=== PATIENT | male | born 1960 | race Caucasian/White ===

== ENCOUNTER 2017-01-26 08:47 | Inpatient (IN) | payer OTHER ==
[~2017-01-26] VITALS: Ht 167.6 cm; Wt 73.7 kg
--- NOTE | ~2017-01-26 | H ---
[facility] [place] [address] HISTORY AND PHYSICAL Name: BARRON CARIAS Room #: 218-P [facility] IN M.R.#: [id number] Admission: 01/26/17 Attend Phys: Bam William MD, Discharge: 02/02/17 Date of : 58 Report #: [id number] THIS REPORT FOR: //name// CC: Bam Phillips MD DATE OF SERVICE: 01/26/2017 HISTORY OF PRESENT ILLNESS: The patient is a 57-year-old male, a juvenile diabetic since age 3, who presents to the emergency room in [place] with chest pain which had initiated last night at approximately 09:00 p.m. He thought it was GI and did not present until early this morning to the [place] [facility] with a troponin of 19 and some subtle lateral wall ST elevation in V3, V4 and V5. He is in sinus rhythm. He has not had prior documented coronary artery disease. He has multiple risk factors including the juvenile diabetes. He has been more fatigued. He is on disability. MEDICATIONS: He has been compliant with the medications, which were amlodipine 10, baby aspirin, atorvastatin 20, diltiazem 300, fish oil, losartan and hydrochlorothiazide 100/25, metoprolol 100, NovoLog and Tresiba. ALLERGIES: PENICILLIN. PAST MEDICAL HISTORY: Positive for the juvenile diabetes, hypertension, hypercholesterolemia, DJD, has had retinopathy and mild kidney disease. SOCIAL HISTORY: No alcohol or tobacco. He has disability. He is , lives in [place], [place]. FAMILY HISTORY: Positive for father who had coronary stents in his 60s. REVIEW OF SYSTEMS: Negative and as stated above, with the exception of fatigue and some occasional nocturia and hesitancy. PHYSICAL EXAMINATION: VITAL SIGNS: Blood pressure 100/60, pulse is 90. HEENT: Eyes reveal xanthelasmas. Pharynx is clear. NECK: Shows preserved upstrokes. There is a right-sided bruit. No JVD. LUNGS: Clear. CARDIAC EXAMINATION: Regular rate and rhythm, S1, S2. ABDOMEN: Soft abdominal bruit. EXTREMITIES: Femoral pulses are intact. The distal pulses are diminished, but they are also intact. MUSCULOSKELETAL: No gross joint deformity. Mild arthritic changes. SKIN: Warm and dry, without xanthoma or ulcer. [facility] [address] [place] [address] HISTORY AND PHYSICAL Name: BARRON CARIAS Room #: 218-P [facility] IN .R.#: [id number] Admission: 01/26/17 Attend Phys: Bam William MD, Discharge: 02/02/17 Date of : 58 Report #: [id number] ASSESSMENT: 1. Non-ST elevation myocardial infarction. 2. Mild ischemic cardiomyopathy. 3. Juvenile-onset diabetes. 4. Hypertension. 5. Hypercholesterolemia. RECOMMENDATIONS AND PLAN: We will proceed emergently to the catheterization lab to delineate the anatomy and intervention as indicated. IV fluids have been initiated, aspirin and statin. Thank you for asking us to assist in the care of this patient. <ELECTRONICALLY SIGNED> By: Bam William MD, FACC 02/08/17 0855 0944 1059 Bam William MD, FACC /nt
--- NOTE | ~2017-01-26 | CNG ---
[facility] [place] [address] CYTO-NONGYN REPORT PROCEDURE Name: BARRON DANIEL Room #: 218-P DIS IN M.R.#: [id number] Admission: 01/26/17 Date of : 58 Discharge: 02/02/17 Report #: [id number] Path Case #: [id number] CYTOPATHOLOGY REPORT COLLECTION DATE: 02/01/2017 RECEIVED DATE: 02/01/2017 SUBMITTING PHYS: Dr. Gerard Dunn OTHER PHYS: Dr. Jamel William CLINICAL HISTORY: Right chest fluid SPECIMEN(S) RECEIVED: A.Pleural fluid, Right * * * * * * * * * * * * FINAL DIAGNOSIS: Pleural fluid, Right: - No malignant epithelial cells identified. - Occasional reactive mesothelial cells and abundant predominantly chronic inflammatory cells, including numerous pigmented histiocytes, are identified. COMMENT: Properly controlled immunohistochemical stains are performed on the cell block. Block A1: Calretinin - highlights the occasional mesothelial cells. CD68 - stains the numerous histiocytes. Aftab-EP4 - nonreactive. Clinical and radiographic correlation is recommended. PATHOLOGIST: Kenisha Altamirano M.D. REPORT ELECTRONICALLY SIGNED BY: Kenisha Altamirano M.D. DATE/TIME: 02/03/2017 11:32 * * * * * * * * * * * * GROSS PATHOLOGY: A. Pleural fluid, Right: The specimen is submitted unfixed, labeled "Barron Daniel". Received by the Cytology Department is 36 mL of cloudy dark red fluid. One ThinPrep slide and a cell block were prepared. (mm 02.01.2017) CLOTH MERCERIZER OPERATOR(S): HERLINDA Sales([facility] INITIAL CPT CODE(S): A; 57893, 83935, 85111, 93553, 74715 [facility] [address] [place] [address] CYTO-NONGYN REPORT PROCEDURE Name: BARRON DANIEL Room #: 218-P [facility] IN ..#: [id number] Admission: 01/26/17 Date of : 58 Discharge: 02/02/17 Report #: [id number] Path Case #: [id number] Professional services performed by [facility] at [facility] [address] [facility] , [place] [address] Technical services performed by [facility] at [address] [place] [address], [facility] [address], [place] [address]. [address], [facility] [address] [place] [address] PHONE: [phone] DIRECTOR: Gerhard Infante M.D. * * * END OF REPORT * * *
--- NOTE | ~2017-01-26 | HC ---
[facility] [place] [address] CONSULTATION Name: BARRON CARIAS Room #: 218-P [facility] IN ..#: [id number] Admission: 01/26/17 Attend Phys: Bam William MD, Discharge: Date of : 58 Report #: [id number] THIS REPORT FOR: //name// CC: Bam Phillips DATE OF SERVICE: 01/26/2017 INTERNAL MEDICINE CONSULTATION REQUESTING PHYSICIAN: Dr. Dunn. The patient was seen for consultation on 01/26/2017. REASON FOR CONSULTATION: Medical management, diabetes mellitus type 1. HISTORY OF PRESENT ILLNESS: The patient is a 57-year-old man with history of diabetes mellitus type 1 since the age of 3, who presents to the emergency room in [place] with chest pain. The patient was found to have ST-elevation RI. The patient was transferred here, and he underwent emergency cardiac catheterization, which revealed 3-vessel coronary artery disease as well as ejection fraction between 14 and 45. Cardiothoracic surgeon is consulted and the patient will have coronary artery bypass grafting surgery in the morning. The patient's blood sugars were found to be elevated up to 375 mg/dL. His anion gap is normal as well as bicarbonate. The patient takes Tresiba and NovoLog at home. He reports large blood sugar excursions. He states that recent hemoglobin A1c was 7.9%. Diabetes is complicated with retinopathy and proteinuria. The patient reports severe hypoglycemic episodes. His hypoglycemia happens randomly. He has not had DKA for last several years. He does not smoke cigarettes and does not drink alcohol. PAST MEDICAL HISTORY: 1. Diabetes mellitus type 1 since the age of 3, complicated with retinopathy and proteinuria. 2. Hypertension. 3. Dyslipidemia. CURRENT MEDICATIONS: Reviewed and documented in the patient's chart. FAMILY HISTORY: Reviewed and not pertinent to the patient's current condition. SOCIAL HISTORY: The patient is . He does not smoke cigarettes. He does [facility] [place] [address] CONSULTATION Name: BARRON CARIAS Room #: 218-P [facility]#: [id number] Admission: 01/26/17 Attend Phys: Bam William MD, Discharge: Date of : 58 Report #: [id number] not drink alcohol. REVIEW OF SYSTEMS: Currently, the patient is chest pain free. He has no shortness of breath. Denies heart palpitations or other symptoms. He has no headaches or blurry vision. He usually has normal appetite and he denies any GI complaints. He denies paresthesias. PHYSICAL EXAMINATION: GENERAL: The patient is a middle-aged man who looks older than his actual age. VITAL SIGNS: Blood pressure is 101/58, heart rate is 95, respiration is 18 and temperature is 98.5. HEENT EXAMINATION: Pupils are equal. Eye movements are normal. NECK: The patient has no thyromegaly. JVD is not appreciated. CARDIOVASCULAR EXAMINATION: The patient has regular rhythm and rate. He has no murmurs, gallops or rubs. RESPIRATORY EXAMINATION: Chest moves symmetrically with breathing. LUNGS: Clear to auscultation bilaterally. GASTROINTESTINAL EXAMINATION: Abdomen is soft, nondistended and nontender. Bowel sounds are present. He has no hepatomegaly or splenomegaly. MUSCULOSKELETAL EXAMINATION: There is no edema, cyanosis or clubbing. Range of motion is normal. NEUROLOGICAL EXAMINATION: The patient is alert and oriented times 3. His examination is nonfocal. SKIN EXAMINATION: The patient has no skin lesions. Skin is dry and warm. LABORATORY DATA: Basic metabolic profile: Sodium is 129, potassium is normal, bicarbonate is 18 and anion gap is 15. Glucose at the same time 375. Creatinine is 1.2. Liver function tests are normal. Troponin is high at 39. CBC with differential shows mild anemia with hemoglobin of 11.3. White count is also 11.3 and platelets are normal at 214,000. Hemoglobin A1c is pending. IMPRESSION: 1. ST-elevation myocardial infarction, coronary artery disease. 2. Severe hyperglycemia. No diabetic ketoacidosis. 3. Diabetes mellitus type 1 since the age of 3, complicated with retinopathy and proteinuria. 4. Hypertension. 5. Dyslipidemia. PLAN: The patient is already started on the insulin drip. IV fluids will be changed to D-5 half normal saline to prevent hypoglycemia. The patient will be continued at current rate, 75 mL per hour. Blood sugars will be monitored every hour based on protocol and insulin dose will be adjusted as necessary to maintain blood glucose levels between 140 and 180 mg/dL range. We will continue to follow the patient during the hospitalization, and will [address] [address] CONSULTATION Name: CARIASBARRON Clifton Room #: 218-P [facility] IN ..#: [id number] Admission: 01/26/17 Attend Phys: Bam William MD, Discharge: Date of : 58 Report #: [id number] provide further recommendations. Once again, thank you very much for allowing us to participate in the care of your patients. <ELECTRONICALLY SIGNED> By: Claribel Steele MD 02/01/17 1247 1714 2315 Claribel Steele MD /nt
--- NOTE | ~2017-01-26 | HC ---
[facility] [place] [address] CONSULTATION Name: BARRON CARIAS Room #: 218-P [facility] IN ..#: [id number] Admission: 01/26/17 Attend Phys: Bam William MD, Discharge: 02/02/17 Date of : 58 Report #: [id number] THIS REPORT FOR: //name// CC: Bam Phillips DATE OF SERVICE: 01/26/2017 We were asked to see the patient by Dr. William. The patient is a 57-year-old with coronary artery disease. The patient states he was in good health until approximately 1 week ago when he began to have chest pain. This was intermittent and not severe, but last night at about 9:00, the pain became severe, mid chest pain radiating to the arms and this did not relent all night. The patient was seen in the emergency department this morning and was found to have ST changes and was sent here acutely. Cardiac catheterization demonstrates severe three-vessel coronary artery disease including high grade LAD stenosis in the mid portion, at least 90% proximal and mid, 80% first diagonal and 98% circumflex and total occlusion of the right coronary artery. Left ventricular function is reduced with an ejection fraction in the 40-45% and apical hypo to akinesis. PAST MEDICAL HISTORY: Significant for diabetes mellitus. The patient states he is a juvenile diabetic who was afflicted at age 3. His diabetes has not been under good control recently. The patient denies other chronic disease. CURRENT MEDICATIONS: Include amlodipine, aspirin, atorvastatin, fish oil, losartan, hydrochlorothiazide, metoprolol, and insulin. ALLERGIES: The patient states PENICILLIN causes an unknown reaction. FAMILY HISTORY: Maternal history positive for diabetes. Paternal history positive for cancers. Sibling history positive for cancer. REVIEW OF SYSTEMS: CONSTITUTIONAL: No fever or chills. EYES: No vision problems. ENT: No hearing problems. No runny nose or sore throat. RESPIRATORY: No cough, shortness of breath, or hemoptysis. CARDIAC: As mentioned, chest pain. No diaphoresis or palpitations. GASTROINTESTINAL: No nausea, vomiting, or abdominal pain. GENITOURINARY: No urgency or frequency. NEUROLOGIC: No motor or sensory dysfunction. MUSCULOSKELETAL: No bone or joint pain. [address] [address] CONSULTATION Name: BARRON CARIAS Room #: 218-P [facility].#: [id number] Admission: 01/26/17 Attend Phys: Bam William MD, Discharge: 02/02/17 Date of : 58 Report #: [id number] SKIN: No rash or infection. PSYCHIATRIC: No depression or anxiety. ENDOCRINE: No weight change. No hot or cold intolerance. HEMATOLOGIC AND LYMPHATIC: No bleeding. No anemia. PHYSICAL EXAMINATION: GENERAL: The patient is alert and oriented. He is resting after cardiac catheterization. VITAL SIGNS: Blood pressure 101/58, heart rate 90, sinus rhythm; respiratory rate 18, and 99% sat on 2 liters. HEENT: No scleral icterus. No arcus. Pupils are round and equal. Gaze is conjugate. Normocephalic. No oral or nasal injection. NECK: No lymphadenopathy. No bruit. CHEST: Clear to auscultation. HEART: Rhythm regular. No murmur. ABDOMEN: Soft, no mass, and no tenderness. EXTREMITIES: No clubbing, cyanosis, or edema. SKIN: No rash. EXTREMITIES: Lower extremities are a bit hairless with changes. I do not feel dorsalis pedis or posterior tibial pulses. Popliteal pulses are 1+ bilaterally. Femoral pulse on the left is 2+. NEUROLOGIC: Oriented and appropriate. PSYCHIATRIC: Shows insight into problem and answers questions appropriately. No obvious motor or sensory dysfunction, although the patient is lying in bed after cath. ASSESSMENT: The patient has important three-vessel coronary artery disease with reduced ventricular function and severe diabetes mellitus. I have recommended coronary artery bypass surgery. Risks and details were discussed. Options and alternatives were reviewed. Risks include, but are not limited to bleeding, infection, anesthesia risks, heart and lung problems, stroke and . The patient understands all of this and he wishes to proceed as discussed. We will try to arrange surgery for tomorrow morning. The patient will be maintained on heparin and Integrilin until then. Thank you for the consult. <ELECTRONICALLY SIGNED> By: Gerard Dunn MD 02/06/17 0933 1059 1503 Gerard Dunn MD /nt
--- NOTE | ~2017-01-26 | EKG ---
[place] [address] [facility] [place] [address] ELECTROCARDIOGRAM REPORT Name: JVBARRON Lazo Room #: 251-P ADM IN M.R.#: [id number] Admission: 01/26/17 Attend Phys: Bam William MD, Discharge: Date of : 58 Report #: [id number] THIS REPORT FOR: //name// [facility] ED Test Date: 2017-01-26 Test Time: 08:51:06 Pat Name: BARRON CARIAS Department: Room: [facility] Gender: M Provider Engagement Executive: TYREE : 1960 Requested By: Ana M Nguyen Order Number: [id number] MD: Frederic Garcia Measurements Intervals [place] Rate: 88 P: 71 NM: 176 QRS: -12 QRSD: 85 T: 91 QT: 348 QTc: 421 Interpretive Statements Sinus rhythm Left atrial enlargement Anterior infarct, acute (LAD) ST elevation, consider inferior injury Baseline wander in lead(s) V4 No previous ECG available for comparison Electronically Signed On 01-27-2017 7:49:34 CDT by Frederic Garcia [email or web address] <ELECTRONICALLY SIGNED> By: Frederic Garcia MD, [facility] 01/27/17 0749 0851 0851 Frederic Garcia MD, [facility] /EPI
--- NOTE | ~2017-01-26 | O ---
[facility] [place] [address] OPERATIVE REPORT Name: BARRON CARIAS Room #: 218-P [facility] IN ..#: [id number] Admission: 01/26/17 Attend Phys: Bma William MD, Discharge: 02/02/17 Date of : 58 Report #: [id number] THIS REPORT FOR: //name// CC: Bam Phillips ____ ____ DATE OF SERVICE: 01/27/2017 PREOPERATIVE DIAGNOSIS: Coronary artery disease. POSTOPERATIVE DIAGNOSIS: Coronary artery disease. OPERATION: Coronary artery bypass x 5 including left internal mammary artery to left anterior descending artery, saphenous vein to diagonal and marginal, saphenous vein to posterior descending branch of the right coronary and posterolateral branch of the circumflex and endoscopic harvest, right greater saphenous vein. SURGEON: Gerard Dunn M.D. SHANK BREAKER: Robert. ANESTHESIA: General. INDICATIONS: The patient is a 57-year-old with coronary artery disease. The patient has unstable angina and intraaortic balloon was placed for after-load reduction and increased myocardial flow, it was only this measure that allowed the patient to be angina free. The patient is a juvenile diabetic having been diabetic from just before his [age] birthday. He has severe three-vessel disease with high-grade LAD total right and high-grade lesion in a collateral from the circumflex to the right that also threatens the distal circumflex system. This is a codominant system. Left ventricular function is reduced at approximately 40%. FINDINGS AND TECHNIQUE: After general anesthesia was established, endoscopic approach was used to harvest the right greater saphenous vein. Exposure was obtained through median sternotomy. Left internal mammary artery was harvested. Pericardial well was made. Cannulation sutures were placed. Heparin was given. Aorta was cannulated. Right atrium was cannulated. Cardioplegia needle was positioned in the aortic root. Retrograde cardioplegic catheter was placed in the coronary sinus. Cardiopulmonary bypass was established. The aorta was cross clamped, antegrade and retrograde cardioplegia were given. Ice was poured in the pericardial well. The heart was stopped. [facility] [address] [employer] [address] [place] [address] OPERATIVE REPORT Name: BARRON CARIAS Room #: 218-P [facility] IN ..#: [id number] Admission: 01/26/17 Attend Phys: Bam William MD, Discharge: 02/02/17 Date of : 58 Report #: [id number] During electromechanical arrest, the distal anastomoses were performed and end-to-side anastomosis was made between vein and the posterior descending artery. This was a long vessel, but it was a bit smaller than expected, measured approximately 1.3 mm in diameter. All of the coronaries were diffusely diseased. After this anastomosis was complete, cold cardioplegia was given. The same segment of vein was sewn in cpjk-[id number] fashion to the posterior descending branch of the right coronary artery. This was a larger vessel and measured approximately 1.5 mm. Cold cardioplegia was given. A separate segment of vein was sewn in end-to-side fashion to a high marginal artery. This was an intramyocardial vessel and was a bit better than expected and measured approximately 1.4 mm. Cold cardioplegia was given. Same segment of vein was sewn in [id number] fashion to a diagonal artery. This was a 1.3 mm vessel. Cold cardioplegia was given. Left internal mammary artery was sewn in end-to-side fashion to the left anterior descending artery. Patency of this vessel was checked with the temperature technique. Cold cardioplegia was given. Two proximal anastomoses were performed. When these were complete, warm retrograde cardioplegia was given followed by warm continuous blood to the coronary sinus. When this infusion was complete, the crossclamp was removed, de-airing maneuvers were performed. The anastomoses were inspected and found to be satisfactory. As the patient warmed, nice cardiac activity resumed, chest tubes and pacing wires were placed, a marker was placed around the proximal anastomoses. When the patient was warmed, he was weaned from cardiopulmonary bypass. Venous cannula was removed. Protamine was given, the aortic cannula was removed. Flows were measured in the bypass grafts. Flow in the graft to the posterior descending and posterolateral was 77 mL per minute. Flow in the graft to the diagonal and marginal was 55 mL per minute. A good Doppler signal was audible in the internal mammary artery. Total cross clamp time was 115 minutes, total pump time was 135 minutes. When hemostasis was satisfactory, chest was irrigated with antibiotic solution and closed in the usual fashion. The patient was taken to the intensive care unit in good condition having tolerated the procedure well. All counts reported as correct. <ELECTRONICALLY SIGNED> By: Gerard Dunn MD 02/06/17 0933 1654 1806 Gerard Dunn MD /nt
--- NOTE | ~2017-01-26 | EKG ---
[address] [employer] [place] [address] ELECTROCARDIOGRAM REPORT Name: BARRON CARIAS Room #: 244- ADM IN M.R.#: [id number] Admission: 01/26/17 Attend Phys: Bam William MD, Discharge: Date of : 58 Report #: [id number] THIS REPORT FOR: //name// [facility] Test Date: 2017-01-28 Test Time: 06:46:06 Pat Name: BARRON CARIAS Department: Room: 244 Gender: M Motor Brakeman: gerald : 1960 Requested By: Miguel A Jones Order Number: [id number] MD: Pramod Guzman Measurements Intervals [place] Rate: 80 P: FL: QRS: -31 QRSD: 81 T: 34 QT: 371 QTc: 428 Interpretive Statements Sinus rhythm Extensive anterior infarct, age indeterminate Electronically Signed On 01-28-2017 14:20:04 CDT by Pramod Guzman [email or web address] <ELECTRONICALLY SIGNED> By: Pramod Guzman MD 01/28/17 1420 0646 0646 MD VALERIE Hall
--- NOTE | ~2017-01-26 | D ---
[facility] [place] [address] DISCHARGE SUMMARY Name: BARRON CARIAS Room #: 218-P [facility] [place] .R.#: [id number] Admission: 01/26/17 Attend Phys: Bam William MD, Discharge: 02/02/17 Date of : 58 Report #: [id number] THIS REPORT FOR: //name// CC: Bam Phillips DATE OF SERVICE: 02/02/2017 HOSPITAL COURSE: The patient is a 57-year-old juvenile onset diabetic who presented here with a non-STEMI. He was subsequently taken to the catheterization lab, which revealed severe 3-vessel coronary disease and underwent bypass surgery with a ELDER to an LAD and SVG diagonal, OM and an SVG to PDA. Ejection fraction had moderately reduced 40-45% range. He had some postoperative AFib. He also had effusion that was tapped in the right base. He has resolved AFib to sinus rhythm. He is on amiodarone 400 a day currently and this will be; his discharge medications are losartan 25, metoprolol 25, atorvastatin 40, insulin, melatonin, sliding scale and Humulin. He is to follow up with his utility systems repairer operator in the next week or two to adjust insulin doses, myself and Dr. Dunn in 2-3 weeks. Continue to work on his IS, relative fluid and sodium restriction. He was hyponatremic. This is resolving. His sodium is on the way up to now 128. His other discharge laboratory work, potassium was 4.7, creatinine 1.3. . His lipids, his LDL was 80 on admission. His H and H is 8.5 and 24.6, also headed up. They have been instructed for surgery with regards to his wound, which is healing well. His exam is relatively benign except for the prolonged expiratory phase of his lungs. He is up and ambulating. His IS is up to 2000. DISCHARGE DIAGNOSES: As stated above. Low fat, low sodium, cholesterol diet and followup scheduled in 2 weeks. He will enter into outpatient cardiac rehab in [facility]. <ELECTRONICALLY SIGNED> By: Bam William MD, FACC 02/08/17 0855 0850 1142 Bam William MD, FACC /nt
--- NOTE | ~2017-01-26 | EKG ---
[address] [place] [address] ELECTROCARDIOGRAM REPORT Name: BARRON CARIAS Room #: 218-P ADM IN M.R.#: [id number] Admission: 01/26/17 Attend Phys: Bam William MD, Discharge: Date of : 58 Report #: [id number] THIS REPORT FOR: //name// [facility] Test Date: 2017-01-31 Test Time: 07:55:31 Pat Name: BARRON CARIAS Department: Room: 218 P Gender: M Bioengineer: buster pollard : 1960 Requested By: Miguel A Jones Order Number: [id number] MD: Pramod Guzman Measurements Intervals [place] Rate: 90 P: 20 MT: 166 QRS: -5 QRSD: 77 T: 69 QT: 346 QTc: 424 Interpretive Statements Sinus rhythm ST elevation, consider inferior injury similar to previous EKG Electronically Signed On 01-31-2017 22:40:01 CDT by Pramod Guzman [email or web address] <ELECTRONICALLY SIGNED> By: Pramod Guzman MD 01/31/17 2240 0755 0755 Pramod Guzman MD /LUKAS
--- NOTE | ~2017-01-26 | CATHLAB ---
[facility] [email or web address] [address] INVASIVE PROCEDURE REPORT Name: BARRON CARIAS Room #: 218-P [facility] IN ..#: [id number] Admission: 01/26/17 Attend Phys: Bam William, Discharge: 02/02/17 Date of : 58 Date of Service: 01/26/17 0940 Report #: [id number] THIS REPORT FOR: //name// CC: Bam Phillips PROCEDURES PERFORMED: Left ventriculography, coronary angiography, abdominal aortography. DESCRIPTION OF PROCEDURE: The patient was brought to the catheterization lab, flown in from [facility] with a subtle lateral ST elevation. Apparently, the chest pain is decreased to 1/10 or less. A 6-Telugu sheath in the right femoral artery, straight pigtail catheter performed a single MICHAEL ventriculogram. There was anterior apical, inferior apical hypokinesis, EF 45% range. FL4 for left coronary system. I should note there is extensive calcification in the proximal coronary anatomy, particularly LAD and left main. The abdominal aorta was intact without aneurysm. Renal arteries and iliacs widely patent. FL4 left coronary system, multiple views and obliques. There is evidence of a subtotal proximal LAD with some slow flow and a more distal lesion in small diagonal branch. There was a large codominant circumflex I suspect with a large OM distally that is filled. However, the circ in the AV groove is subtotaled and that is filling the posterior lateral PDA briskly. The right is occluded with the JR4 proximally. I suspect this is a chronic occlusion, but it is jeopardized by the subtotal distal circumflex lesion in the AV groove. The circ OM is otherwise intact with dual marginal branches distally and the LAD is compromised as stated above. Mynx closure was utilized. I reviewed with Dr. Dunn from CV surgery. This is due to extensive calcification in multiple areas and totaled right. He will best serve with revascularization by bypass. The patient is hemodynamically stable at this point. I have just sent lab off. He is alert. His pain is less than 1/10. We will initiate a heparin and Integrilin drip without boluses. The groin is stable. HEMODYNAMICS: Aortic 110/60, LV 110/14. IMPRESSION: 1. Left main is free of disease. 2. Left anterior descending coronary artery is subtotal proximally with some slow flow, FAUSTINO grade 2, extending into the apex. The more distal lesion also looks to be at least moderate, but under filled with it may be filled comparatively. 3. Circumflex obtuse marginal is codominant that gives off 2 large distal obtuse marginal branches, which are patent, but the circumflex is subtotaled in the AV groove. The [place] right is occluded proximally and this is chronic. The posterior descending artery and posterolateral coronary artery briskly filled via the circumflex in the AV groove, which is compromised. 4. Normal left ventricular size with anterior and inferior apical hypokinesis, ejection fraction 45%. [facility] [address] [place] [address] INVASIVE PROCEDURE REPORT Name: BARRON CARIAS Room #: 218-P DIS IN M.R.#: [id number] Admission: 01/26/17 Attend Phys: Bam William, Discharge: 02/02/17 Date of : 58 Date of Service: 01/26/1740 Report #: [id number] 5. Abdominal aorta is intact without aneurysm. Renal arteries and iliacs widely patent. RECOMMENDATIONS: Heparin and Integrilin drips have been initiated to keep patency of these vessels. I will obtain a carotid Doppler. We will transfer to CCU in stable and guarded condition and plan on operative procedure revascularization by bypass in the a.m. Dr. Dunn who has been here reviewed, will come back and discuss with the family. The patient is nearly pain free. We will obtain a troponin, CBC, chemistry and hemoglobin A1c. I have initiated beta paulo and statin therapy. He has been compliant with his statins previously, to CCU in guarded condition. <ELECTRONICALLY SIGNED> By: Bam William MD, FACC 02/08/17 0855 0940 2304 Bam William MD, FACC /nt
--- NOTE | ~2017-01-26 | CATHLAB ---
[facility] [address] [place] [address] INVASIVE PROCEDURE REPORT Name: BARRON CARIAS Room #: 218-P [facility]#: [id number] Admission: 01/26/17 Attend Phys: Bam William, Discharge: Date of : 58 Date of Service: 01/27/17 1001 Report #: [id number] THIS REPORT FOR: //name// CC: Bam Phillips DATE OF SERVICE: 01/26/2017 PROCEDURE: Insertion of an intraaortic counterpulsation balloon under fluoroscopy. INDICATIONS: This is a 57-year-old male patient, presented with acute myocardial infarction with continued 6-8/10 chest pain. REAL ESTATE FINANCIAL ANALYST: Kendall Elias M.D. DESCRIPTION OF PROCEDURE: After informed consent was obtained, the patient was brought to the cardiac catheterization laboratory in stable condition. Both groins were prepped and draped in usual sterile manner. Utilizing a modified Seldinger technique, the left femoral artery was accessed. Standard sheath was then placed and secured with 2-0 suture. Under fluoroscopic visualization, balloon pump was then advanced and positioned at the aortic knob without difficulty. Inflation was performed and normal function of the balloon was identified. The balloon was secured in place was placed on 2-1 mode with systolic augmentations to 100-110 mmHg. systolic blood pressure was 70-80 mmHg. No complications. The patient tolerated the procedure well. <ELECTRONICALLY SIGNED> By: Kendall Elias MD 01/29/17 1343 1001 2055 Kendall Elias MD /nt
--- NOTE | ~2017-01-26 | EKG ---
[address] [address] ELECTROCARDIOGRAM REPORT Name: BARRON CARIAS Room #: 244-P [facility] IN M.R.#: [id number] Admission: 01/26/17 Attend Phys: Bam William MD, Discharge: Date of : 58 Report #: [id number] THIS REPORT FOR: //name// [facility] Test Date: 2017-01-27 Test Time: 15:33:57 Pat Name: BARRON CARIAS Department: Room: [facility] Gender: M Superintendent Cemetery: [place] : 1960 Requested By: Bam William Order Number: [id number] MD: Pramod Guzman Measurements Intervals [place] Rate: 99 P: [place]: QRS: -49 QRSD: 72 T: 49 QT: 348 QTc: 447 Interpretive Statements Sinus rhythm ST elevations improved Electronically Signed On 01-27-2017 17:16:14 CDT by Pramod Guzman [email or web address] <ELECTRONICALLY SIGNED> By: Pramod Guzman MD 01/27/17 1716 1533 1533 Pramod Guzman MD /LUKAS
--- NOTE | ~2017-01-26 | EKG ---
[address] [address] ELECTROCARDIOGRAM REPORT Name: BARRON CARIAS Room #: 251-P ADM IN M.R.#: [id number] Admission: 01/26/17 Attend Phys: Bam William MD, Discharge: Date of : 58 Report #: [id number] THIS REPORT FOR: //name// [facility] Test Date: 2017-01-26 Test Time: 13:48:11 Pat Name: BARRON CARIAS Department: Room: [facility] Gender: M Wirer Maintenance: gerald : 1960 Requested By: Gerard Dunn Order Number: [id number] MD: Frederic Garcia Measurements Intervals [place] Rate: 90 P: 68 NE: 176 QRS: 5 QRSD: 77 T: 92 QT: 329 QTc: 403 Interpretive Statements Sinus rhythm Inferior infarct, acute Anterolateral infarct, acute Baseline wander in lead(s) III No previous ECG available for comparison Electronically Signed On 01-27-2017 7:55:45 CDT by Frederic Garcia [email or web address] <ELECTRONICALLY SIGNED> By: Frederic Garcia MD, [facility] 01/27/17 0755 1348 1348 Frederic Garcia MD, [facility] /EPI
[2017-01-26 08:48] VITALS: BP 101/58
[2017-01-26 11:12] LABS: HEMATOCRIT 32.7 % (42.0-52.0); HEMOGLOBIN 11.3 gm/dL (14.0-18.0); MCH 31.6 pg (26.0-34.0); MCHC 34.4 g/dL (28.0-37.0); MCV 91.8 fL (80.0-100.0); RBC 3.56 mil/uL (4.50-6.00); WBC 11.3 thou/uL (4.0-11.0)
[2017-01-26 11:25] VITALS: BP 103/55
[2017-01-26 11:27] LABS: APTT 40.9 Seconds (24.5-32.8); INR 1.1; PROTIME 11.1 Seconds (9.3-11.4)
[2017-01-26 11:32] LABS: ANION GAP 15 mmol/L (7-16); BUN 28 mg/dL (7-18); CALCIUM 8.4 mg/dL (8.5-10.1); CHLORIDE 96 mmol/L (98-107); CO2 18 mmol/L (21-32); CREATININE 1.2 mg/dL (0.7-1.3); GLUCOSE 375 mg/dL (74-106); POTASSIUM 4.9 mmol/L (3.5-5.1); SODIUM 129 mmol/L (136-145)
[2017-01-26 11:39] LABS: ALBUMIN 3.6 g/dL (3.4-5.0); ALKALINE PHOSPHATASE 96 U/L (46-116); CHOLESTEROL 148 mg/dL (<200); HDL CHOLESTEROL 57 mg/dL (>40); LDL CHOLESTEROL 80 mg/dL (<100); SGOT 100 U/L (15-37); SGPT 38 U/L (30-65); TC:HDL 2.6 Ratio (Not establshd); TOTAL BILIRUBIN 0.7 mg/dL (<0.1-1.0); TOTAL PROTEIN 7.2 g/dL (6.4-8.2); TRIGLYCERIDE 58 mg/dL (<150); VLDL 12 mg/dL (<40)
[2017-01-26 12:00] LABS: TROPONIN-I 39.58 ng/mL (<0.04-0.07)
[2017-01-26 19:12] LABS: CALCIUM 8.7 mg/dL (8.5-10.1); CREATININE 1.3 mg/dL (0.7-1.3); MAGNESIUM 1.7 mg/dL (1.8-2.4)
[2017-01-26 23:07] LABS: URINE BILIRUBIN 1+ (Negative); URINE BLOOD NEGATIVE (Negative); URINE COLOR YELLOW; URINE GLUCOSE-RANDOM* 3+ (Negative); URINE KETONES 2+ (Negative); URINE LEUKOCYTES-REFLEX NEGATIVE (Negative); URINE PROTEIN (DIPSTICK) NEGATIVE (Negative); URINE SPECIFIC GRAVITY 1.015 (1.003-1.035); URINE UROBILINOGEN 0.2 E.U./dl (0.2-1.0)
[2017-01-26 23:08] LABS: ICTOTEST (BILI CONFIRMATORY) Negative (Negative)
[2017-01-27] VITALS (10 sets, daily range): BP systolic 84–129; BP diastolic 36–89
[2017-01-27 04:08] LABS: GLYCOHEMOGLOBIN (HGB A1C) 7.3 % (4.8-5.6)
[2017-01-27 05:20] LABS: HEMATOCRIT 28.2 % (42.0-52.0); MCH 32.1 pg (26.0-34.0); MCHC 35.6 g/dL (28.0-37.0); MCV 90.4 fL (80.0-100.0); PLATELET COUNT 180 thou/uL (150-400); RBC 3.12 mil/uL (4.50-6.00); RDW 11.7 % (10.5-14.5); WBC 14.8 thou/uL (4.0-11.0)
[2017-01-27 05:26] LABS: CALCIUM 8.6 mg/dL (8.5-10.1); CREATININE 1.1 mg/dL (0.7-1.3); POTASSIUM 3.7 mmol/L (3.5-5.1)
[2017-01-27 05:37] LABS: MANUAL DIFF YES
[2017-01-27 08:36] LABS: ABSOLUTE NEUTROPHILS 12.7 thou/uL (1.4-8.2); TOTAL CELL COUNT 100
[2017-01-27 08:37] LABS: ANISOCYTOSIS SLIGHT
[2017-01-27 14:01] LABS: POC BE 0 mmol/L (-2.0 to +3.0); POC CA IONIZED 4.3 mg/dL (4.5-5.3); POC FiO2 100 %; POC GLUCOSE 175 mg/dL (70-99); POC HCO3 25.3 mmol/L (22.0-26.0); POC HEMOGLOBIN 6.8 g/dL (14.0-18.0); POC SODIUM 136 mmol/L (136-145); POC pCO2 45.8 mmHg (35.0-45.0)
[2017-01-27 14:01] LABS: POC BE 1 mmol/L (-2.0 to +3.0); POC CA IONIZED 4.3 mg/dL (4.5-5.3); POC FiO2 100 %; POC GLUCOSE 145 mg/dL (70-99); POC HCO3 25.9 mmol/L (22.0-26.0); POC HEMOGLOBIN 6.8 g/dL (14.0-18.0); POC POTASSIUM 4.7 mmol/L (3.5-5.1); POC SODIUM 136 mmol/L (136-145); POC pCO2 44.6 mmHg (35.0-45.0); POC pH 7.372 (7.360-7.450)
[2017-01-27 14:01] LABS: POC BE 4 mmol/L (-2.0 to +3.0); POC CA IONIZED 4.6 mg/dL (4.5-5.3); POC FiO2 100 %; POC GLUCOSE 122 mg/dL (70-99); POC HCO3 26.5 mmol/L (22.0-26.0); POC HEMOGLOBIN 8.8 g/dL (14.0-18.0); POC POTASSIUM 3.9 mmol/L (3.5-5.1); POC SODIUM 136 mmol/L (136-145); POC pCO2 32.5 mmHg (35.0-45.0); POC pH 7.519 (7.360-7.450)
[2017-01-27 14:01] LABS: POC BE -3 mmol/L (-2.0 to +3.0); POC CA IONIZED 5.1 mg/dL (4.5-5.3); POC FiO2 100 %; POC GLUCOSE 179 mg/dL (70-99); POC HCO3 22.1 mmol/L (22.0-26.0); POC HEMOGLOBIN 6.1 g/dL (14.0-18.0); POC POTASSIUM 4.8 mmol/L (3.5-5.1); POC SODIUM 135 mmol/L (136-145); POC pCO2 37.4 mmHg (35.0-45.0); POC pH 7.379 (7.360-7.450)
[2017-01-27 14:01] LABS: POC BE 2 mmol/L (-2.0 to +3.0); POC CA IONIZED 4.1 mg/dL (4.5-5.3); POC FiO2 100 %; POC GLUCOSE 102 mg/dL (70-99); POC HCO3 27.2 mmol/L (22.0-26.0); POC HEMOGLOBIN 7.5 g/dL (14.0-18.0); POC POTASSIUM 4.1 mmol/L (3.5-5.1); POC SODIUM 134 mmol/L (136-145); POC pCO2 44.3 mmHg (35.0-45.0); POC pH 7.397 (7.360-7.450)
[2017-01-27 14:01] LABS: POC BE -3 mmol/L (-2.0 to +3.0); POC CA IONIZED 4.4 mg/dL (4.5-5.3); POC FiO2 100 %; POC GLUCOSE 100 mg/dL (70-99); POC HCO3 22.9 mmol/L (22.0-26.0); POC HEMOGLOBIN 8.2 g/dL (14.0-18.0); POC POTASSIUM 4.1 mmol/L (3.5-5.1); POC SODIUM 136 mmol/L (136-145); POC pH 7.355 (7.360-7.450)
[2017-01-27 14:01] LABS: POC BE 0 mmol/L (-2.0 to +3.0); POC CA IONIZED 4.5 mg/dL (4.5-5.3); POC FiO2 100 %; POC GLUCOSE 115 mg/dL (70-99); POC HCO3 24.1 mmol/L (22.0-26.0); POC HEMOGLOBIN 8.2 g/dL (14.0-18.0); POC POTASSIUM 3.5 mmol/L (3.5-5.1); POC SODIUM 135 mmol/L (136-145); POC pCO2 34.9 mmHg (35.0-45.0); POC pH 7.447 (7.360-7.450)
[2017-01-27 14:01] LABS: POC BE -4 mmol/L (-2.0 to +3.0); POC CA IONIZED 4.8 mg/dL (4.5-5.3); POC FiO2 100 %; POC GLUCOSE 160 mg/dL (70-99); POC HCO3 20.5 mmol/L (22.0-26.0); POC HEMOGLOBIN 8.5 g/dL (14.0-18.0); POC POTASSIUM 4.1 mmol/L (3.5-5.1); POC SODIUM 138 mmol/L (136-145); POC pCO2 33.8 mmHg (35.0-45.0); POC pH 7.391 (7.360-7.450)
[2017-01-27 14:01] LABS: POC BE 0 mmol/L (-2.0 to +3.0); POC CA IONIZED 4.4 mg/dL (4.5-5.3); POC FiO2 80 %; POC GLUCOSE 112 mg/dL (70-99); POC HCO3 25.3 mmol/L (22.0-26.0); POC HEMOGLOBIN 7.1 g/dL (14.0-18.0); POC SODIUM 136 mmol/L (136-145); POC pCO2 43.4 mmHg (35.0-45.0); POC pH 7.373 (7.360-7.450)
[2017-01-27 14:38] LABS: HEMATOCRIT 27.8 % (42.0-52.0); HEMOGLOBIN 9.7 gm/dL (14.0-18.0); MCHC 34.8 g/dL (28.0-37.0); RBC 3.02 mil/uL (4.50-6.00); RDW 12.1 % (10.5-14.5); WBC 20.4 thou/uL (4.0-11.0)
[2017-01-27 14:49] LABS: CALCIUM 7.8 mg/dL (8.5-10.1)
[2017-01-27 18:27] LABS: HEMATOCRIT 26.1 % (42.0-52.0); MCH 31.4 pg (26.0-34.0); MCHC 34.3 g/dL (28.0-37.0); MCV 91.4 fL (80.0-100.0); RBC 2.86 mil/uL (4.50-6.00); RDW 11.8 % (10.5-14.5); WBC 19.2 thou/uL (4.0-11.0)
[2017-01-27 18:36] LABS: CALCIUM 8.1 mg/dL (8.5-10.1); CREATININE 1.1 mg/dL (0.7-1.3); POTASSIUM 4.2 mmol/L (3.5-5.1)
[2017-01-27 21:02] LABS: ABG SAMPLE TYPE ARTERIAL; BE(vivo) -2.5 mmol/L (-2 to +3); HCO3 22.3 mmol/L (22.0-26.0); LACTATE 1.72 mmol/L (0.5-2.0); O2Hb 95.9 % (92.0-98.0); PCO2 38.3 mmHg (35.0-45.0); PO2 104.2 mmHg (80.0-100.0); pH 7.382 (7.360-7.450); sO2 97.7 % (92.0-98.0); tCO2 23.4 mmol/L (24.0-30.0)
[2017-01-27 21:02] LABS: ABG SAMPLE TYPE VENOUS; BE(vivo) -5.2 mmol/L (-2 to +3); HCO3 21.2 mmol/L (22.0-26.0); LACTATE 1.82 mmol/L (0.5-2.0); PO2 VENOUS 34.6 mmHg (35.0-45.0); sO2 VENOUS 59.7 % (65.0-85.0); tCO2 22.6 mmol/L (24.0-30.0)
[2017-01-27 21:02] LABS: ABG SAMPLE TYPE ARTERIAL; HCO3 20.7 mmol/L (22.0-26.0); O2(CT) 13.7 mL/dL (15.0-23.0); O2Hb 94.8 % (92.0-98.0); PO2 94.8 mmHg (80.0-100.0); sO2 96.7 % (92.0-98.0)
[2017-01-27 21:55] LABS: STICK SITE LINE; TIDAL VOLUME 500 ml
[2017-01-27 21:56] LABS: STICK SITE LINE; TIDAL VOLUME 500 ml; pH 7.322 (7.360-7.450)
[2017-01-27 21:57] LABS: Pressure Support 8 cm H20; STICK SITE LINE
[2017-01-28] VITALS (17 sets, daily range): BP systolic 89–125; BP diastolic 43–86
[2017-01-28 05:19] LABS: HEMATOCRIT 23.6 % (42.0-52.0); HEMOGLOBIN 8.1 gm/dL (14.0-18.0); MCH 31.9 pg (26.0-34.0); MCHC 34.4 g/dL (28.0-37.0); MCV 92.7 fL (80.0-100.0); RBC 2.55 mil/uL (4.50-6.00); RDW 12.2 % (10.5-14.5); WBC 14.3 thou/uL (4.0-11.0)
[2017-01-28 05:31] LABS: CALCIUM 7.8 mg/dL (8.5-10.1); CREATININE 1.3 mg/dL (0.7-1.3); POTASSIUM 4.6 mmol/L (3.5-5.1)
[2017-01-29] VITALS (7 sets, daily range): BP systolic 106–134; BP diastolic 60–65
[2017-01-29 05:32] LABS: HEMOGLOBIN 8.3 gm/dL (14.0-18.0); MCH 31.9 pg (26.0-34.0); MCHC 34.7 g/dL (28.0-37.0); MCV 91.9 fL (80.0-100.0); RBC 2.62 mil/uL (4.50-6.00); RDW 12.2 % (10.5-14.5); WBC 15.3 thou/uL (4.0-11.0)
[2017-01-29 05:56] LABS: CALCIUM 7.9 mg/dL (8.5-10.1); CREATININE 1.4 mg/dL (0.7-1.3); POTASSIUM 4.5 mmol/L (3.5-5.1)
[2017-01-30 00:03] VITALS: BP 108/57
[2017-01-30 03:18] VITALS: BP 122/57
[2017-01-30 12:08] VITALS: BP 102/52
[2017-01-30 20:41] VITALS: BP 108/56
[2017-01-31 04:45] VITALS: BP 116/54
[2017-01-31 05:02] LABS: HEMATOCRIT 24.4 % (42.0-52.0); HEMOGLOBIN 8.4 gm/dL (14.0-18.0); MCH 31.9 pg (26.0-34.0); MCHC 34.5 g/dL (28.0-37.0); MCV 92.5 fL (80.0-100.0); RBC 2.64 mil/uL (4.50-6.00); WBC 7.9 thou/uL (4.0-11.0)
[2017-01-31 05:24] LABS: CALCIUM 7.8 mg/dL (8.5-10.1); CREATININE 1.4 mg/dL (0.7-1.3); POTASSIUM 4.5 mmol/L (3.5-5.1)
[2017-01-31 08:30] VITALS: BP 140/69
[2017-01-31 12:00] VITALS: BP 98/41
[2017-01-31 15:55] VITALS: BP 110/45
[2017-01-31 20:56] VITALS: BP 113/58
[2017-02-01 02:33] LABS: CALCIUM 7.7 mg/dL (8.5-10.1); CREATININE 1.5 mg/dL (0.7-1.3); POTASSIUM 4.6 mmol/L (3.5-5.1)
[2017-02-01 05:04] VITALS: BP 120/56
[2017-02-01 07:39] VITALS: BP 151/55
[2017-02-01 12:37] VITALS: BP 94/42
[2017-02-01 15:07] LABS: MANUAL DIFF YES; TOTAL VOLUME 60 mL
[2017-02-01 15:08] LABS: CLARITY TURBID; COLOR RED
[2017-02-01 15:19] LABS: BF NUCLEATED CELLS 164; BF RBC 88475
[2017-02-01 15:52] VITALS: BP 111/38
[2017-02-01 16:28] LABS: BF MACROPHAGE 8; BF NEUTROPHILS 67
[2017-02-01 19:07] VITALS: BP 115/53
[2017-02-02 04:04] VITALS: BP 140/30
[2017-02-02 04:54] LABS: HEMATOCRIT 24.6 % (42.0-52.0); HEMOGLOBIN 8.4 gm/dL (14.0-18.0); MCH 31.8 pg (26.0-34.0); MCHC 34.3 g/dL (28.0-37.0); MCV 92.8 fL (80.0-100.0); PLATELET COUNT 231 thou/uL (150-400); RBC 2.65 mil/uL (4.50-6.00); RDW 12.3 % (10.5-14.5); WBC 7.6 thou/uL (4.0-11.0)
[2017-02-02 05:00] LABS: MANUAL DIFF YES
[2017-02-02 05:01] LABS: CALCIUM 7.7 mg/dL (8.5-10.1); CREATININE 1.3 mg/dL (0.7-1.3); MAGNESIUM 1.9 mg/dL (1.8-2.4); POTASSIUM 4.7 mmol/L (3.5-5.1)
[2017-02-02 08:00] LABS: ABSOLUTE NEUTROPHILS 5.5 thou/uL (1.4-8.2); ANISOCYTOSIS 1+; MYELOCYTES 3 %; POLYCHROMASIA OCCASIONAL; TOTAL CELL COUNT 100
[2017-02-02] MEDS ORDERED: FERREX 150 PLU1 EAC1 PO (08:49)
[2017-02-02] MEDS ORDERED: PACERONE 200 M200 M1 PO (08:49)
[2017-02-02] MEDS ORDERED: ATORVASTATIN CA40 MG PO (08:50)
[2017-02-02] MEDS ORDERED: METOPROLOL SUCC25 M1 PO (08:50)
[2017-02-02] MEDS ORDERED: COZAAR 25 MG TA25 M1 PO (08:50)
[2017-02-02] MEDS ORDERED: ASPIR 8181 MG PO (08:51)
[2017-02-02] MEDS ORDERED: HYDROCODON-ACE1 EAC7 PO (08:52)
[2017-02-02 09:45] VITALS: BP 128/55
[2017-02-02] MEDS ORDERED: ULTRA-LIGHT RO1 EACH MC (10:29)
[2017-02-02 11:08] VITALS: BP 140/30
[2017-02-02 12:10] VITALS: BP 126/32
[2017-02-02 13:45] VITALS: BP 140/30
[2017-02-03 11:08] LABS: BODY FLUID ALBUMIN 1.5 g/dL (()); BODY FLUID AMYLASE 6 U/L (()); BODY FLUID GLUCOSE 200 mg/dL (()); BODY FLUID LDH 319 IU/L (()); BODY FLUID PROTEIN 2.1 g/dL (())
== END 2017-02-02 15:59 | disposition home or self-care (01) | DRG 233 ==
LOC: ER 08:47 → EROBS 09:06 → ICU 09:06 → 2N 11:17 → ICU 13:54 → TBA 01-27 08:28 → ICU 01-27 14:45 → 2N 01-29 11:57
PROVIDERS: Emergency Medicine; Internal Medicine; Internal Medicine Cardiovascular Disease; Internal Medicine Endocrinology, Diabetes & Metabolism; Nurse Practitioner; Physician Assistant; Surgery Vascular Surgery
PROC: B4101ZZ Fluoroscopy of Abdominal Aorta using Low Osmolar Contrast (ICD-10-PCS; 2017-01-26)
PROC: B2111ZZ Fluoroscopy of Multiple Coronary Arteries using Low Osmolar Contrast (ICD-10-PCS; 2017-01-26)
PROC: B2151ZZ Fluoroscopy of Left Heart using Low Osmolar Contrast (ICD-10-PCS; 2017-01-26)
PROC: 02HV33Z Insertion of Infusion Device into Superior Vena Cava, Percutaneous Approach (ICD-10-PCS; 2017-01-26)
PROC: B548ZZA Ultrasonography of Superior Vena Cava, Guidance (ICD-10-PCS; 2017-01-26)
PROC: 06BP0ZZ Excision of Right Saphenous Vein, Open Approach (ICD-10-PCS; principal; 2017-01-27)
PROC: 021 Heart and Great Vessels, Bypass (ICD-10-PCS; principal; 2017-01-27)
PROC: 02100Z9 Bypass Coronary Artery, One Artery from Left Internal Mammary, Open Approach (ICD-10-PCS; principal; 2017-01-27)
PROC: 4A023N7 Measurement of Cardiac Sampling and Pressure, Left Heart, Percutaneous Approach (ICD-10-PCS; principal; 2017-01-27)
PROC: 5A1221Z Performance of Cardiac Output, Continuous (ICD-10-PCS; principal; 2017-01-27)
PROC: 5A02210 Assistance with Cardiac Output using Balloon Pump, Continuous (ICD-10-PCS; principal; 2017-01-27)
PROC: 021309W Bypass Coronary Artery, Four or More Arteries from Aorta with Autologous Venous Tissue, Open Approach (ICD-10-PCS; principal; 2017-01-27)
PROC: 03HB33Z Insertion of Infusion Device into Right Radial Artery, Percutaneous Approach (ICD-10-PCS; 2017-01-27)
PROC: 0W993ZZ Drainage of Right Pleural Cavity, Percutaneous Approach (ICD-10-PCS; 2017-02-01)
DX: I21.3 ST elevation (STEMI) myocardial infarction of unspecified site (principal); R65.11 Systemic inflammatory response syndrome (SIRS) of non-infectious origin with acute organ dysfunction; N17.9 Acute kidney failure, unspecified; E87.1 Hypo-osmolality and hyponatremia; I25.10 Atherosclerotic heart disease of native coronary artery without angina pectoris; E78.5 Hyperlipidemia, unspecified; I10 Essential (primary) hypertension; E10.65 Type 1 diabetes mellitus with hyperglycemia; E10.319 Type 1 diabetes mellitus with unspecified diabetic retinopathy without macular edema; E78.00 Pure hypercholesterolemia, unspecified; M19.90 Unspecified osteoarthritis, unspecified site; I25.5 Ischemic cardiomyopathy; Z88.0 Allergy status to penicillin; Z79.4 Long term (current) use of insulin; Z79.82 Long term (current) use of aspirin; Z80.9 Family history of malignant neoplasm, unspecified; Z83.3 Family history of diabetes mellitus; Z79.899 Other long term (current) drug therapy
CPT/HCPCS: 10078; 10081; 27000; 47000; 47001; 47002; 47297; 48888; 50010; 50249; 50409; 50498; 50668; 51301; 51437; 52131; 52259; 53327; 53358; 54118; 56524; 56525; 56526; 56527; 56528; 56531; 56534; 56660; 56898; 57093; 62110; 62950; 65003